=== PATIENT | female | born 1980 | race Two or more races ===

== ENCOUNTER 2019-11-27 07:00 | Day surgery (SDC) | payer OTHER | END 2019-11-27 13:35 | disposition home or self-care (01) | LOC: AMB-ENDOS 07:00 → EDSEX 07:00 → AMB-ENDOS 12:45 | DX: K62.89 Other specified diseases of anus and rectum (principal); Z12.11 Encounter for screening for malignant neoplasm of colon ==

== ENCOUNTER 2019-12-08 12:00 | Inpatient (IN) | payer OTHER ==
[~2019-12-08] VITALS: Ht 160 cm; Wt 56.7 kg
[2019-12-08] MEDS ORDERED: NAPROXEN500 MG PO (14:17)
[2019-12-13] MEDS ORDERED: INTEGRA F CAPS1 EACH PO (10:47)
[2019-12-13] MEDS ORDERED: ULTRACET PO (10:47)
[2019-12-13] MEDS ORDERED: B12 ACTIVE1000 MCG PO (10:48)
[2019-12-13] MEDS ORDERED: FOLIC ACID1 MG PO (10:48)
== END 2019-12-13 11:20 | disposition home or self-care (01) | DRG 742 ==
LOC: ADM 12:00 → EDSTATUS 12:00 → EDSEX 12:00 → O/R 12-11 05:55 → SURG 12-11 05:55 → SURH 12-11 07:00 → SURG 12-11 17:27
PROVIDERS: Obstetrics & Gynecology Gynecologic Oncology; ADMIT Surgery; ATTEND Surgery
PROC: 0UT14ZZ Resection of Left Ovary, Percutaneous Endoscopic Approach (ICD-10-PCS; 2019-12-11)
PROC: 0TN74ZZ Release Left Ureter, Percutaneous Endoscopic Approach (ICD-10-PCS; 2019-12-11)
PROC: 0DNN4ZZ Release Sigmoid Colon, Percutaneous Endoscopic Approach (ICD-10-PCS; 2019-12-11)
PROC: 0DQN4ZZ Repair Sigmoid Colon, Percutaneous Endoscopic Approach (ICD-10-PCS; 2019-12-11)
PROC: 0DJD8ZZ Inspection of Lower Intestinal Tract, Via Natural or Artificial Opening Endoscopic (ICD-10-PCS; 2019-12-11)
PROC: 0UB04ZZ Excision of Right Ovary, Percutaneous Endoscopic Approach (ICD-10-PCS; principal; 2019-12-11 07:00)
PROC: 0UT64ZZ Resection of Left Fallopian Tube, Percutaneous Endoscopic Approach (ICD-10-PCS; 2019-12-11 07:00)
DX: N80.1 Endometriosis of ovary (principal); K91.72 Accidental puncture and laceration of a digestive system organ or structure during other procedure; N83.201 Unspecified ovarian cyst, right side; N73.6 Female pelvic peritoneal adhesions (postinfective); Y92.234 Operating room of hospital as the place of occurrence of the external cause; Y65.8 Other specified misadventures during surgical and medical care